=== PATIENT | female | born 1995 | race Caucasian/White ===

== ENCOUNTER 2017-03-05 23:36 | Emergency (ER) | payer OTHER ==
[2017-03-05 23:41] VITALS: BP 141/94
[2017-03-06] MEDS ORDERED: Sulfamethox/Trimethoprim DS 800/160* TAB PO ONE (00:23)
--- NOTE | 2017-03-06 02:44 | ED ---
Earnestine Perez Rebecca, scribed for HiernestoIsaías on 03/06/17 at 0024 . Skin Complaint - HPI Summary HPI Summary: Pt is a 22 y/o F who presents to ED c/o bilateral axillary rash. Rash began gradually today, worsening at 1300. Characterized as raised hives with associated pain ranked 8/10. Sx aggravated and alleviated by nothing, unchanged by Benadryl (taken at 1800). Denies fever, CP, SOB. - History of Current Complaint Chief Complaint: EDRashSkinAbscess Time Seen by Provider: 03/06/17 00:11 Stated Complaint: RASH ON SIDES Hx Obtained From: Patient Onset/Duration: Started Hours Ago - Today, Still Present Timing: Constant Onset Severity: Moderate Current Severity: Severe Pain Intensity: 8 Pain Scale Used: 0-10 Numeric Skin Location: Other: - Bilateral axillary Character: Pain, Hives, Raised Aggravating Symptom(s): Nothing Alleviating Symptom(s): Nothing Associated Signs & Symptoms: Negative - Allergy/Home Medications Allergies/Adverse Reactions: Allergies Allergy/AdvReac Type Severity Reaction Status Date / Time No Known Allergies Allergy Verified 03/05/17 23:39 PMH/Surg Hx/FS Hx/Imm Hx Previously Healthy: Yes Endocrine/Hematology History: Denies: Hx Diabetes Cardiovascular History: Denies: Hx Hypertension Infectious Disease History: No Infectious Disease History: Denies: Traveled Outside the [place] in Last 30 Days - Family History Known Family History: Positive: Unknown - Pt is adopted, unknown FHx - Social History Occupation: Student Substance Use Type: Reports: None Smoking Status (MU): Never Smoked Tobacco Review of Systems Negative: Fever Negative: Chest Pain Negative: Shortness Of Breath Positive: Rash - bilateral axillary painful, raised hives All Other Systems Reviewed And Are Negative: Yes Physical Exam Triage Information Reviewed: Yes Vital Signs On Initial Exam: Initial Vitals Temp Pulse Resp BP Pulse Ox 97.1 F 82 16 141/94 100 03/05/17 23:39 03/05/17 23:39 03/05/17 23:39 03/05/17 23:39 03/05/17 23:39 Vital Signs Reviewed: Yes Appearance: Positive: Well-Appearing, No Pain Distress Skin: Positive: Warm, Other - Pustular rash in the bilateral axillary regions Eyes: Positive: EOMI, IRENE Respiratory/Lung Sounds: Positive: Clear to Auscultation, Breath Sounds Present Cardiovascular: Positive: RRR, Pulses are Symmetrical in both Upper and Lower Extremities Abdomen Description: Positive: Nontender, Soft Bowel Sounds: Positive: Present Musculoskeletal: Positive: Normal, Strength/ROM Intact Neurological: Positive: Normal, Sensory/Motor Intact, Alert, Oriented to Person Place, Time Diagnostics - Vital Signs Vital Signs Temp Pulse Resp BP Pulse Ox 03/06/17 00:15 97.1 F 82 16 141/94 100 03/05/17 23:39 97.1 F 82 16 141/94 100 - Laboratory Lab Statement: Any lab studies that have been ordered have been reviewed, and results considered in the medical decision making process. Course/Dx - Course Assessment/Plan: Pt came in with bilateral maxillary rash. On exam, reveals a bilateral pustular rash, most probably folliculitis or possible MRSA. Pt will be D/C to home with Abx and a followup with PCP in 3 days. - Diagnoses Provider Diagnoses: Folliculitis Discharge - Discharge Plan Condition: Stable Disposition: HOME Prescriptions: Sulfamethox/Trimethoprim DS* [Bactrim DS 800/160 TAB*] 1 tab PO BID #20 tab Patient Education Materials: Folliculitis (ED) [facility] [Primary Care Provider] - 3 Days The documentation as recorded by the Earnestine alba Rebecca accurately reflects the service I personally performed and the decisions made by Cary sanchez Emmanuel.
--- NOTE | 2017-03-09 17:23 | PN ---
Progress Note - Progress Note Note: Patient discharge on appropriate antibiotic according to sensitivities. No further action needed.
== END 2017-03-06 00:42 | disposition home or self-care (01) ==
LOC: ED 23:36
DX: L73.9 Follicular disorder, unspecified (principal)
CPT/HCPCS: 87070; 87077; 87186; 87205; 99281; A9270-GY